=== PATIENT | female | born 1950 | race Caucasian/White ===

== ENCOUNTER 2017-09-25 07:33 | Emergency (ER) | payer OTHER ==
[~2017-09-25] VITALS: Ht 172.7 cm; Wt 89.8 kg
[~2017-09-25 07:33] MED LIST: ATEN50TA PO; BUDE6HFA INH; CARB-61 PO; CYM30 PO; FERR-57 PO; LOSA100T15 PO; NITR-85 PO; NITR50CA PO; RIVA10TA PO; VALS160T2 PO
[2017-09-25 07:40] VITALS: BP_SYST 152
[2017-09-25] MEDS ORDERED: LIDOCAINE 1% 10 MG/ML, 20 ML MDV IJ ONE (08:30)
[2017-09-25] MEDS ORDERED: HYDROcodone/ACETAMIN 5-325 MG TAB (NORCO/ VICODIN) PO ONE (10:00)
[2017-09-25 11:08] VITALS: BP_SYST 145
== END 2017-09-25 11:08 | disposition home or self-care (01) ==
LOC: SED 07:33
DX: S01.81XA Laceration without foreign body of other part of head, initial encounter (principal); J44.9 Chronic obstructive pulmonary disease, unspecified; I12.9 Hypertensive chronic kidney disease with stage 1 through stage 4 chronic kidney disease, or unspecified chronic kidney disease; E11.22 Type 2 diabetes mellitus with diabetic chronic kidney disease; N18.9 Chronic kidney disease, unspecified; Z79.899 Other long term (current) drug therapy; Z88.0 Allergy status to penicillin; G20 Parkinson's disease; W01.0XXA Fall on same level from slipping, tripping and stumbling without subsequent striking against object, initial encounter; Y93.89 Activity, other specified; Y92.89 Other specified places as the place of occurrence of the external cause; Y99.8 Other external cause status
CPT/HCPCS: 12014; 70450; 99284; J2001